=== PATIENT | male | born 1945 | race Caucasian/White ===

== ENCOUNTER 2020-01-07 15:14 | Emergency (ER) | payer MEDICARE, MEDICAID ==
[~2020-01-07] VITALS: Ht 172.7 cm; Wt 70.0 kg
[~2020-01-07 15:14] MED LIST: LIDOcaine 1% W/epiNEPHrine 1:200,000 10ml vial ONE
--- NOTE | 2020-01-07 15:25 | NUR ---
DR. ARRINGTON AT BEDSIDE
[2020-01-07] MEDS ORDERED: TETanus/Pertussis (Acell)/Diphther VAC/PF (Tdap-Adult) 0.5ml syringe IMVAC ONE (15:35)
[2020-01-07] MEDS ORDERED: LIDOcaine 1% W/epiNEPHrine 1:200,000 10ml vial IJ ONE (15:35)
--- NOTE | 2020-01-07 15:35 | NUR ---
HAND XRAY DONE
--- NOTE | 2020-01-07 16:30 | NUR ---
PT'S FRIEND CALLS FOR UPDATE. LEAVES HER PHONE NUMBER FOR A RIDE: CELIA NIXON [phone]
[2020-01-07] MEDS ORDERED: ceFAZolin 1gm IM kit IM ONE (16:40)
[2020-01-07] MEDS ORDERED: HYDR-3965 PO (17:25)
[2020-01-07] MEDS ORDERED: CEPH500C5 PO (17:28)
[2020-01-07 17:48] VITALS: BP 141/72
== END 2020-01-07 17:45 | disposition home or self-care (01) ==
LOC: ER 15:14
DX: S61.412A Laceration without foreign body of left hand, initial encounter (principal); M25.532 Pain in left wrist; L03.114 Cellulitis of left upper limb; I10 Essential (primary) hypertension; F17.200 Nicotine dependence, unspecified, uncomplicated; Z72.89 Other problems related to lifestyle; Z88.0 Allergy status to penicillin; Z79.2 Long term (current) use of antibiotics; X58.XXXA Exposure to other specified factors, initial encounter; Y93.89 Activity, other specified; Y92.89 Other specified places as the place of occurrence of the external cause; Y99.8 Other external cause status
CPT/HCPCS: 29125; 73130; 90471; 90715; 96372; 99284; J0690

== ENCOUNTER 2020-01-09 08:40 | Emergency (ER) | payer MEDICARE, MEDICAID ==
[~2020-01-09] VITALS: Ht 172.7 cm; Wt 76.8 kg
[~2020-01-09 08:40] MED LIST changes: +CEPH500C5 PO; +HYDR-3965 PO; -LIDOcaine 1% W/epiNEPHrine 1:200,000 10ml vial ONE
[2020-01-09 08:41] VITALS: BP 128/60
== END 2020-01-09 10:06 | disposition home or self-care (01) ==
LOC: ER 08:41
DX: S61.412D Laceration without foreign body of left hand, subsequent encounter (principal); I10 Essential (primary) hypertension; Z48.00 Encounter for change or removal of nonsurgical wound dressing; Z72.89 Other problems related to lifestyle; Z88.0 Allergy status to penicillin; Z79.899 Other long term (current) drug therapy
CPT/HCPCS: 99284